=== PATIENT | male | born 1975 | race Native Hawaiian/Other Pacific Islander ===

== ENCOUNTER 2018-06-28 18:00 | Emergency (ER) | payer OTHER ==
[~2018-06-28] VITALS: Ht 157.5 cm; Wt 74.4 kg
[2018-06-28] MEDS ORDERED: PROZAC10 MG PO (18:33)
[2018-06-28] MEDS ORDERED: ZYPREXA ZYDI5 MG PO (18:33)
[2018-06-28] MEDS ORDERED: BENZ1TAB43 PO (18:34)
[2018-06-28] MEDS ORDERED: OXCARBAZEPIN600 MG PO (18:35)
[2018-06-28 20:55] VITALS: BP 122/82; TEMP 98.2
== END 2018-06-28 20:57 | disposition home or self-care (01) ==
LOC: ED 18:00
DX: S70.12XA Contusion of left thigh, initial encounter (principal); W18.39XA Other fall on same level, initial encounter; Y92.89 Other specified places as the place of occurrence of the external cause
CPT/HCPCS: 96372; 99283; J1885

== ENCOUNTER 2019-01-12 09:46 | Emergency (ER) | payer OTHER ==
[~2019-01-12] VITALS: Ht 157.5 cm; Wt 74.4 kg
[~2019-01-12 09:46] MED LIST: BENZ1TAB43 PO; OXCARBAZEPIN600 MG PO; PROZAC10 MG PO; ZYPREXA ZYDI5 MG PO
[2019-01-12 10:02] VITALS: BP 120/79; TEMP 97.7
== END 2019-01-12 11:18 | disposition home or self-care (01) ==
LOC: ED 09:46
DX: G58.8 Other specified mononeuropathies (principal); M62.838 Other muscle spasm
CPT/HCPCS: 99282; 99283

== ENCOUNTER 2019-04-08 09:24 | Outpatient (CLI) | payer OTHER ==
[2019-04-08] MEDS ORDERED: TRAMADOL HCL E300 MG PO (09:52)
[2019-04-08] MEDS ORDERED: TIZA4TAB5 PO (09:53)
[2019-04-08] MEDS ORDERED: LIPITOR20 MG PO (09:54)
== END 2019-04-08 09:25 | disposition short-term general hospital (02) ==
LOC: AMB 09:24
DX: R56.9 Unspecified convulsions (principal); S01.01XA Laceration without foreign body of scalp, initial encounter; R00.0 Tachycardia, unspecified; W01.198A Fall on same level from slipping, tripping and stumbling with subsequent striking against other object, initial encounter; Y92.89 Other specified places as the place of occurrence of the external cause
CPT/HCPCS: A0425; A0427

== ENCOUNTER 2019-04-08 09:27 | Emergency (ER) | payer OTHER ==
[~2019-04-08] VITALS: Ht 162.6 cm; Wt 74.4 kg
[2019-04-08 09:34] VITALS: BP 124/81; TEMP 98.7
[2019-04-08] MEDS ORDERED: TRAMADOL HCL E300 MG PO (09:52)
[2019-04-08] MEDS ORDERED: TIZA4TAB5 PO (09:53)
[2019-04-08] MEDS ORDERED: LIPITOR20 MG PO (09:54)
[2019-04-08 10:03] LABS: PLATELET COUNT 210 K/uL (142-355)
[2019-04-08 10:15] LABS: POTASSIUM 3.9 mmol/L (3.6-5.2)
[2019-04-08 10:30] VITALS: BP 135/78
[2019-04-08 11:40] VITALS: BP 121/74
[2019-04-08 12:33] VITALS: BP 121/74; TEMP 98.7
== END 2019-04-08 12:33 | disposition still patient (30) ==
LOC: ED 09:27 → MED/SURG 10:40 → ED 10:40
PROVIDERS: Emergency Medicine
PROC: 0HQ0XZZ Repair Scalp Skin, External Approach (ICD-10-PCS; principal; 2019-04-08)
DX: R56.9 Unspecified convulsions (principal); S01.01XA Laceration without foreign body of scalp, initial encounter; S72.092A Other fracture of head and neck of left femur, initial encounter for closed fracture; W01.198A Fall on same level from slipping, tripping and stumbling with subsequent striking against other object, initial encounter; Y92.098 Other place in other non-institutional residence as the place of occurrence of the external cause
CPT/HCPCS: 80053; 85027; 93005; 96374; 96375; 99285; J1885; J2175

== ENCOUNTER 2019-04-08 12:39 | Outpatient (CLI) | payer OTHER ==
[~2019-04-08 12:39] MED LIST changes: +LIPITOR20 MG PO; +TIZA4TAB5 PO; +TRAMADOL HCL E300 MG PO
== END 2019-04-08 13:54 | disposition short-term general hospital (02) ==
LOC: AMB 12:39
DX: S72.092A Other fracture of head and neck of left femur, initial encounter for closed fracture (principal); W18.39XA Other fall on same level, initial encounter; Y92.89 Other specified places as the place of occurrence of the external cause
CPT/HCPCS: A0425; A0427